=== PATIENT | male | born 1960 | race Caucasian/White ===

== ENCOUNTER 2016-11-05 19:19 | Inpatient (IN) | payer MEDICARE ==
[2016-11-05 19:33] VITALS: BMI 31.8
[2016-11-05] MEDS ORDERED: MAGNESIUM HYDROXIDE 30 ML UDCUP PO PRN (20:04)
[2016-11-05] MEDS ORDERED: BLISTEX LIPSTICK 1 EACH TP PRN (20:04)
[2016-11-05] MEDS ORDERED: DIPHENHYDRAMINE HCL 50 MG/1 ML VIAL IV PRN (20:04)
[2016-11-05] MEDS ORDERED: MENTHOL/CETYLPYRD 1 EACH LOZENGE PO PRN (20:04)
[2016-11-05] MEDS ORDERED: BISACODYL 5 MG TABLET.EC PO PRN (20:04)
[2016-11-05] MEDS ORDERED: SODIUM CHLORIDE 0.9% 100 ML IV PRN (20:04)
[2016-11-05] MEDS ORDERED: BISACODYL 10 MG SUP PR PRN (20:04)
[2016-11-05] MEDS ORDERED: ENOXAPARIN SODIUM 40 MG/0.4 ML SYRINGE SUB-Q SCH (20:15)
[2016-11-05] MEDS ORDERED: SODIUM CHLORIDE 0.9% 1,000 ML IV SCH (20:15)
[2016-11-05] MEDS ORDERED: NICOTINE 21 MG PATCH 1 EACH TD PRN (20:17)
[2016-11-05] MEDS ORDERED: INSULIN ASPART (DOSE) 100 UNITS/1 ML SUB-Q PRN (20:17)
[2016-11-05] MEDS ORDERED: PUMP TUBING ONE (20:18)
[2016-11-05] MEDS: DOCUSATE SODIUM 100 MG CAPSULE PO SCH (20:34)
[2016-11-05] MEDS: POTASSIUM CHLORIDE 10 MEQ TAB.SR PO SCH (20:34)
[2016-11-05] MEDS: FAMOTIDINE 20 MG TABLET PO SCH (20:34)
[2016-11-05] MEDS: MONTELUKAST SODIUM 10 MG TABLET PO SCH (20:35)
[2016-11-05] MEDS ORDERED: ACETAMINOPHEN 325 MG TABLET PO PRN (20:39)
[2016-11-05 20:43] LABS: INR 4.68; PROTHROMBIN TIME 53.3 SECONDS (9.3-11.4)
[2016-11-05] MEDS: ALBUTEROL NEB 2.5 MG/3 ML VIAL.NEB NEB PRN (20:44)
[2016-11-05] MEDS: ALBUTEROL/IPRATROPIUM 2.5/0.5 MG 3 ML/EACH DOSE IH SCH (20:50)
[2016-11-05] MEDS: FLUTICASONE/SALMETEROL 100/50 14 PUFF/EACH DISK IH SCH (21:03)
[2016-11-05] MEDS: MELATONIN 3 MG TABLET PO PRN (22:11)
[2016-11-05] MEDS: ACETAMINOPHEN 325 MG TABLET PO PRN (22:11)
[2016-11-06] MEDS: ALBUTEROL NEB 2.5 MG/3 ML VIAL.NEB NEB PRN (03:18)
[2016-11-06] MEDS ORDERED: DILTIAZEM HCL 5 MG/ML 5ML VIAL IV ONE ×2 (03:40→04:15)
[2016-11-06] MEDS ORDERED: SODIUM CHLORIDE 0.9% 500 ML IV SCH (04:30)
[2016-11-06 05:41] LABS: ABSOLUTE NEUTROPHIL COUNT 14.5 K/mm3 (1.8-7.7); BASO % 0.2 % (0.2-1.0); HEMATOCRIT 29.6 % (32.0-52.0); HEMOGLOBIN 10.2 gm/l (14.0-18.0); IMM NEUT # 0.5 K/mm3 (0-0.2); IMM NEUT% 2.5 % (0-1); LYMPH # 1.6 (1.0-4.8); LYMPH % 9.2 % (15-45); MEAN CELL VOLUME 93.1 fl (80.0-94.0); MEAN CORPUSCULAR HEMOGLOBIN 32.1 pg (27.0-31.0); MEAN CORPUSCULAR HGB CONC 34.5 g/dl (33.0-37.0); MEAN PLATELET VOLUME 10.9 fl (7.4-10.4); MONO # 1.3 (0.0-0.8); NEUT % 81.1 % (43-75); PLATELET COUNT 136 K/mm3 (130-400); RED CELL DISTRIBUTION WIDTH 12.4 % (11.5-14.5)
[2016-11-06] MEDS: ACETAMINOPHEN 325 MG TABLET PO PRN (05:55)
[2016-11-06 05:59] LABS: ALB/GLOB RATIO 1.2 (>1.0); ALBUMIN 3.3 gm/dL (3.5-5.7); CALCIUM 8.8 mg/dL (8.6-10.3); INR 4.4
[2016-11-06 06:32] LABS: NEUTROPHILS 61 % (43-75); TOTAL CELLS COUNTED 100
[2016-11-06 06:33] LABS: BAND 20 % (0-10); BASOPHIL 0 % (0-1); EOSINOPHIL 0 % (1-3); LYMPHOCYTE 13 % (15-45); MONOCYTE 6 % (4-12); PLATELET ESTIMATE NORMAL (NORMAL); TOXIC GRANULATION 2+
[2016-11-06] MEDS: LEVOTHYROXINE SODIUM 25 MCG TABLET PO SCH (06:53)
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
[2016-11-06] MEDS: LORAZEPAM 0.5 MG TABLET PO PRN ×2 (07:30→20:22)
[2016-11-06] MEDS: METOPROLOL TARTRATE 1 MG/ML 5ML VIAL IV ONE ×2 (07:30→07:31)
[2016-11-06] MEDS: FLUTICASONE/SALMETEROL 100/50 14 PUFF/EACH DISK IH SCH ×2 (08:10→20:20)
[2016-11-06] MEDS: FAMOTIDINE 20 MG TABLET PO SCH ×2 (08:10→20:22)
[2016-11-06] MEDS: FUROSEMIDE 40 MG TABLET PO SCH (08:10)
[2016-11-06] MEDS: ATORVASTATIN CALCIUM 40 MG TABLET PO SCH (08:11)
[2016-11-06] MEDS: BUPROPION HCL 150 MG XL TAB.ER.24H PO SCH (08:11)
[2016-11-06] MEDS: DOCUSATE SODIUM 100 MG CAPSULE PO SCH ×2 (08:12→20:11)
[2016-11-06] MEDS: FEXOFENADINE 180 MG TABLET PO SCH (08:12)
[2016-11-06] MEDS: POTASSIUM CHLORIDE 10 MEQ TAB.SR PO SCH ×2 (08:15→20:23)
--- NOTE | 2016-11-06 08:23 | RAD ---
11/06/2016 8:15 AM CHEST - 2 VIEWS History: Follow-up pneumonia Comparison: None Findings: Two views of the chest are obtained. The lungs demonstrate patchy airspace disease within the inferior aspect of the right upper lobe. Small effusion is identified, layering against the sidewall and in the subpulmonic region. The cardiomediastinal silhouette is unremarkable.. The osseous structures are intact.. Single-lead left-sided pacemaker is present with leads terminating in expected region of the left ventricle. Median sternotomy wires are present. IMPRESSION: Right upper lobe pneumonia and effusion as above. As the patient likely has prior studies at an outside institution given the indications, if these could be digitized into the [facility] PACS, a direct comparison could be made and addendum to this report generated as clinically warrented..
[2016-11-06] MEDS: ALBUTEROL/IPRATROPIUM 2.5/0.5 MG 3 ML/EACH DOSE IH SCH ×4 (08:34→20:07)
[2016-11-06] MEDS ORDERED: METOPROLOL SUCCINATE (XL) 50 MG TAB.PRT.SR PO SCH (09:00)
[2016-11-06] MEDS: METOPROLOL SUCCINATE (XL) 50 MG TAB.PRT.SR PO SCH ×2 (09:06→20:22)
--- NOTE | 2016-11-06 11:17 | PDOC43 ---
- Subjective Chief Complaint: Cough Pt here for CAP. RN reports pt quite anxious, and requested ativan, now doing better. No pain c/o. Pt reports rapid heart rate last night after neb tx (converted this am). Reports loose stools x 4 since admit. Stomach a little upset. Breathing better. Ativan helpful for anxiety. - Objective Vital Signs Temperature 98.4 F 11/06/16 07:37 Pulse Rate 85 11/06/16 08:34 Respiratory Rate 20 11/06/16 08:34 Blood Pressure 116/70 11/06/16 07:37 O2 Saturation by Pulse Oximetry 99 11/06/16 08:34 Oxygen Delivery Method Nasal Cannula Oxygen Flow Rate 3 Vital Signs Last 12 Hours Temp Pulse Resp BP Pulse Ox 11/06/16 08:34 85 20 99 11/06/16 07:37 98.4 F 118 19 116/70 97 11/06/16 07:13 19 11/06/16 04:45 98.4 F 112 19 102/57 96 11/06/16 03:18 101 24 100 11/06/16 00:52 98.1 F 81 19 107/53 95 Intake and Output 11/04/16 11/05/16 11/06/16 23:59 23:59 23:59 Intake Total 700 2200 Output Total 600 1150 Balance 100 1050 General: Alert, Cooperative, No Acute Distress HEENT: Atraumatic Lungs: Other (Crackles R upper lobe posteriorly. wheezes bilat.) Cardiovascular: Regular Rate and Rhythm Abdomen: Soft, Normal Bowel Sounds, Other (some tenderness reported L UQ. No R/G ) Extremities: No Edema Neurological: Normal Speech Psych/Mental Status: Other (appears to be feeling better overal.) Laboratory 11/06/16 05:05 11/06/16 05:05 11/06/16 11/06/16 11/05/16 07:35 05:05 20:15 RBC 3.18 L MCH 32.1 H PT 50.0 H 53.3 H VBG Lactate 2.5 H 3.5 H Estimated GFR 42 L POC Capillary Glucose ALT 6 L B-Natriuretic Peptide 379 H Total Protein 6.1 L Albumin 3.3 L % Immature Granulocyt 2.5 H 11/05/16 19:55 RBC MCH PT VBG Lactate Estimated GFR POC Capillary Glucose 110 H ALT B-Natriuretic Peptide Total Protein Albumin % Immature Granulocyt Laboratory Tests 11/05/16 11/06/16 11/06/16 20:15 05:05 07:35 VBG Lactate 3.5 H 2.5 H Troponin I < 0.01 < 0.01 Current Medications: Current meds reviewed in EMR. Active Medications Acetaminophen (Tylenol) 650 mg PO Q6H PRN PRN Reason: Pain or Temperature > 100.5 F Last Admin: 11/06/16 05:55 Dose: 650 mg Acetaminophen (Tylenol) 325 mg PO QID PRN PRN Reason: Pain (Severe) Albuterol Sulfate (Ventolin Inhalation Solution (Dose)) 2.5 mg NEB Q2H PRN PRN Reason: Wheezing Last Admin: 11/06/16 03:18 Dose: 2.5 mg Albuterol/Ipratropium (Duoneb) 3 ml IH 08,12,16,20 [facility] Last Admin: 11/06/16 08:34 Dose: 3 ml Atorvastatin Calcium (Lipitor) 40 mg PO DAILY [facility] Last Admin: 11/06/16 08:11 Dose: 40 mg Benzocaine/Menthol (Cepacol) 1 each PO PRN PRN PRN Reason: Sore Throat Bisacodyl (Dulcolax) 10 mg GA DAILY PRN PRN Reason: Constipation Bisacodyl (Dulcolax) 5 mg PO DAILY PRN PRN Reason: Constipation Bupropion HCl (Wellbutrin Xl) 300 mg PO DAILY [facility] Last Admin: 11/06/16 08:11 Dose: 300 mg Diphenhydramine HCl (Benadryl) 25 - 50 mg IV Q6H PRN PRN Reason: itching or nausea Docusate Sodium (Colace) 100 mg PO BID [facility] Last Admin: 11/06/16 08:12 Dose: Not Given Famotidine (Pepcid) 20 mg PO BID [facility] Last Admin: 11/06/16 08:10 Dose: 20 mg Fexofenadine HCl (Anastasiya 24 Hour) 180 mg PO DAILY [facility] Last Admin: 11/06/16 08:12 Dose: 180 mg Furosemide (Lasix) 40 mg PO QAM [facility] Last Admin: 11/06/16 08:10 Dose: 40 mg Sodium Chloride (Sodium Chloride 0.9%) 100 mls @ 25 mls/hr IV PRN PRN PRN Reason: Flush Levofloxacin/Dextrose 750 mg/ (Premix (D5W) 150 ml Bag) 150 mls @ 100 mls/hr IV Q24H [facility] Insulin Aspart (Novolog (Dose)) 0 units SUB-Q WM/BEDTIME PRN; Protocol PRN Reason: Blood Sugar > Levothyroxine Sodium (Levothroid) 25 mcg PO QAMAC [facility] Last Admin: 11/06/16 06:53 Dose: 25 mcg Lorazepam (Ativan) 0.5 - 1 mg PO Q4H PRN PRN Reason: Anxiety Last Admin: 11/06/16 07:30 Dose: 0.5 mg Magnesium Hydroxide (Milk Of Magnesia) 30 ml PO DAILY PRN PRN Reason: Constipation Melatonin (Melatonin) 3 - 9 mg PO BEDTIME PRN PRN Reason: Insomnia Last Admin: 11/05/16 22:11 Dose: 6 mg Metoprolol Succinate (Toprol Xl) 100 mg PO BID [facility] Last Admin: 11/06/16 09:06 Dose: 100 mg Miscellaneous (Coumadin Per Pharmacy) 1 each PO PERPHARMACY [facility] Montelukast Sodium (Singulair) 10 mg PO BEDTIME [facility] Last Admin: 11/05/16 20:35 Dose: 10 mg Nicotine (Nicoderm Cq) 1 each TD DAILY PRN PRN Reason: smoking cessation Oxycodone HCl (Roxicodone) 10 mg PO QID PRN PRN Reason: Pain (Severe) Petrolatum/Paraffin/Mineral Oil (Blistex) 1 each TP PRN PRN PRN Reason: Dry and/or chapped lips Potassium Chloride (K-Dur) 10 meq PO BID [facility] Last Admin: 11/06/16 08:15 Dose: 10 meq Fluticasone/Salmeterol (Advair 100/50 Diskus) 2 puff IH BID [facility] Last Admin: 11/06/16 08:10 Dose: 2 inh Sodium Chloride (Normal Saline 10ml Flush) 10 - 50 ml IV PRN PRN PRN Reason: IV Flush Last Admin: 11/06/16 03:45 Dose: 10 ml - Problems: Assessment/Plan (1) Community acquired bacterial pneumonia Status: AcuteAssessment/Plan: Bacterial, organism not identified (cultures done in [place]) yet. On Levaquin, started 11/05. Respiratory status good. With severe sepsis. Will recheck lactate. (2) COPD (chronic obstructive pulmonary disease) Qualifiers: COPD type: unspecified COPD Qualifier Code: (J44.9) Chronic obstructive pulmonary disease, unspecified Status: ChronicAssessment/Plan: Continue meds, sats doing well, even on RA. (3) Diabetes mellitus, type II Status: ChronicAssessment/Plan: BG doing well, continue tx. (4) Ischemic cardiomyopathy Status: ChronicAssessment/Plan: BNP sl elevated, but tolerated IVF well. Sats good. Troponins normal. (5) RAYMOND (acute kidney injury) Status: AcuteAssessment/Plan: Cr 2.4->1.7 with hydration. Recheck in am. (6) Atrial fibrillation Qualifiers: Atrial fibrillation type: paroxysmal Qualifier Code: (I48.0) Paroxysmal atrial fibrillation Status: ChronicAssessment/Plan: Patient had episode of increased HR, atrial fib with tachycardia. Didn't have much response to diltiazem, but good response to metoprolol, and converted. On coumadin, INR elevated. (7) Anxiety Status: ChronicAssessment/Plan: Ativan prn, started 11/06 (8) Frequent loose stools Qualifiers: Diarrhea type: unspecified type Qualifier Code: (R19.7) Diarrhea, unspecified Status: AcuteAssessment/Plan: check wbc, c diff. Verbal report had been of increased rate of norovirus around [place]. Anticipate isolation VTE Prophylaxis: ON coumadin, INR 4.4 today Disposition: Anticipate going to med/surg today. Hope to return home in the next 2 days.
[2016-11-06] MEDS ORDERED: LEVOFLOXACIN 750 MG/D5W 150 ML 750 MG in Premix (D5W) 150 ml Bag 1 EACH IV SCH (12:00)
[2016-11-06 13:42] LABS: C DIFF TOXIN A/B NEGATIVE (NEGATIVE)
[2016-11-06] MEDS ORDERED: WARFARIN SODIUM 5 MG TABLET PO SCH (16:00)
[2016-11-06] MEDS ORDERED: WARFARIN PER PHARMACY 1 EACH DOSE PO SCH (16:00)
[2016-11-06] MEDS ORDERED: PUMP TUBING ONE (16:07)
[2016-11-06] MEDS: LEVOFLOXACIN 750 MG/D5W 150 ML 750 MG in Premix (D5W) 150 ml Bag 1 EACH IV SCH (16:14)
[2016-11-06] MEDS ORDERED: METOPROLOL TARTRATE 1 MG/ML 5ML VIAL ONE (16:52)
[2016-11-06] MEDS ORDERED: LOPERAMIDE HCL 2 MG CAPSULE PO PRN (17:07)
[2016-11-06] MEDS ORDERED: METOPROLOL TARTRATE 1 MG/ML 5ML VIAL IV ONE (17:07)
[2016-11-06] MEDS ORDERED: LOPERAMIDE HCL 2 MG CAPSULE PO ONE (17:09)
[2016-11-06] MEDS: MELATONIN 3 MG TABLET PO PRN (20:21)
[2016-11-06] MEDS: MONTELUKAST SODIUM 10 MG TABLET PO SCH (20:23)
[2016-11-07 05:56] LABS: ABSOLUTE NEUTROPHIL COUNT 9.3 K/mm3 (1.8-7.7); BASO % 0.2 % (0.2-1.0); EOS % 0.1 % (0.9-2.9); HEMATOCRIT 29.9 % (32.0-52.0); HEMOGLOBIN 10.1 gm/l (14.0-18.0); IMM NEUT # 0.1 K/mm3 (0-0.2); IMM NEUT% 0.7 % (0-1); LYMPH # 2.4 (1.0-4.8); LYMPH % 19.2 % (15-45); MEAN CELL VOLUME 94.3 fl (80.0-94.0); MEAN CORPUSCULAR HEMOGLOBIN 31.9 pg (27.0-31.0); MEAN CORPUSCULAR HGB CONC 33.8 g/dl (33.0-37.0); MONO # 0.5 (0.0-0.8); MONO % 4.1 % (4-12); NEUT % 75.7 % (43-75); PLATELET COUNT 150 K/mm3 (130-400); RED CELL DISTRIBUTION WIDTH 12.3 % (11.5-14.5)
[2016-11-07 06:08] LABS: INR 2.6; PROTHROMBIN TIME 28.7 SECONDS (9.3-11.4)
[2016-11-07 07:04] LABS: ALB/GLOB RATIO 1.1 (>1.0); ALBUMIN 3.4 gm/dL (3.5-5.7); CALCIUM 9.4 mg/dL (8.6-10.3)
[2016-11-07] MEDS: ALBUTEROL/IPRATROPIUM 2.5/0.5 MG 3 ML/EACH DOSE IH SCH ×4 (08:25→20:26)
[2016-11-07] MEDS: FEXOFENADINE 180 MG TABLET PO SCH (08:58)
[2016-11-07] MEDS: METOPROLOL SUCCINATE (XL) 50 MG TAB.PRT.SR PO SCH (08:59)
[2016-11-07] MEDS: POTASSIUM CHLORIDE 10 MEQ TAB.SR PO SCH ×2 (09:00→21:00)
[2016-11-07] MEDS: OXYCODONE HCL 5 MG TABLET PO PRN ×3 (09:00→19:57)
[2016-11-07] MEDS: FAMOTIDINE 20 MG TABLET PO SCH ×2 (09:01→21:00)
[2016-11-07] MEDS: FUROSEMIDE 40 MG TABLET PO SCH (09:01)
[2016-11-07] MEDS: BUPROPION HCL 150 MG XL TAB.ER.24H PO SCH (09:01)
[2016-11-07] MEDS: LEVOTHYROXINE SODIUM 25 MCG TABLET PO SCH (09:02)
[2016-11-07] MEDS: ATORVASTATIN CALCIUM 40 MG TABLET PO SCH (09:02)
[2016-11-07] MEDS: FLUTICASONE/SALMETEROL 100/50 14 PUFF/EACH DISK IH SCH ×2 (09:06→21:04)
[2016-11-07] MEDS: DOCUSATE SODIUM 100 MG CAPSULE PO SCH (09:12)
[2016-11-07] MEDS ORDERED: METOPROLOL TARTRATE 25 MG TABLET PO ONE (11:51)
--- NOTE | 2016-11-07 12:12 | PDOC43 ---
- Subjective Chief Complaint: Pneumonia Subjective: Reports Pain Tolerable, Reports Tolerating Diet Well, Reports Bowel Movement, Reports Urinating Without Difficulty, Reports Cough, Denies Chest Pain , Denies Fever, Denies Chills - Objective Vital Signs Temperature 98.8 F 11/07/16 09:00 Pulse Rate 128 11/07/16 11:31 Respiratory Rate 18 11/07/16 11:31 Blood Pressure 96/80 11/07/16 09:00 O2 Saturation by Pulse Oximetry 99 11/07/16 11:31 Oxygen Delivery Method Nasal Cannula Oxygen Flow Rate 2 Intake and Output 11/05/16 11/06/16 11/07/16 23:59 23:59 23:59 Intake Total 700 3563 450 Output Total 600 1775 1050 Balance 100 1788 -600 General: Alert, Oriented x3, Cooperative HEENT: Atraumatic, PERRLA Lungs: Other (right upper/middle/lower rhonchi, coarse crackles. left lung CTA) Cardiovascular: Irregular, Other (tachycardia) Abdomen: Soft, Normal Bowel Sounds, No Tenderness, No Non-Distended Extremities: Cyanosis (feet are cool and dusky), Pulses Diminished but Palpable , No Edema, No Tenderness Skin: Dry, Intact, Other (cool, dusky feet) Psych/Mental Status: Normal Affect, Normal Mood Laboratory 11/07/16 05:25 11/07/16 05:25 11/07/16 11/06/16 11/06/16 05:25 21:15 16:38 RBC 3.17 L MCV 94.3 H MCH 31.9 H PT 28.7 H Estimated GFR 48 L POC Capillary Glucose 126 H 107 H Albumin 3.4 L Current Medications: Current meds reviewed in EMR. - Problems: Assessment/Plan (1) Right upper lobe pneumonia Status: AcuteAssessment/Plan: Levaquin, Afebrile, WBC resolving. CT chest at outside facility within past 1 week or so per patient, ordered by his belt tender. Will request report to ensure no mass or other critical findings. Has home O2 QHS and prn. Will repeat CXR in am to reassess effusion and if larger will consider diagnostic/therapeutic tap. (2) Atrial fibrillation Qualifiers: Atrial fibrillation type: paroxysmal Qualifier Code: (I48.0) Paroxysmal atrial fibrillation Status: ChronicAssessment/Plan: Responsive to BB. Not responsive to CCB. Was on Coreg and recently transitioned to lopressor. Has had EP study but unable to do ablation. Has AICD with hx of prior discharges and Pacemaker. Will increase Lopressor to 125mg BID for improved rate control. (3) COPD (chronic obstructive pulmonary disease) Qualifiers: COPD type: unspecified COPD Qualifier Code: (J44.9) Chronic obstructive pulmonary disease, unspecified Status: ChronicAssessment/Plan: Has outpatient pulmonology, PFT's, CT and home O2 with good home med regimen. (4) Diabetes mellitus, type II Qualifiers: Diabetes mellitus complication status: with circulatory complication Status: ChronicAssessment/Plan: on SSI (5) Ischemic cardiomyopathy Status: ChronicAssessment/Plan: BNP very mildly elevated given history and is likely at baseline. No clinical exam signs of decompensation. EF<30% at baseline. (6) Anxiety Status: ChronicAssessment/Plan: Ativan prn, started 11/06 (7) CKD (chronic kidney disease) stage 3, GFR 30-59 ml/min Status: AcuteAssessment/Plan: Baseline 1.8 (8) Anemia of chronic disease Status: AcuteAssessment/Plan: Stable (9) Anticoagulant long-term use Status: AcuteAssessment/Plan: INR goal 2-3, daily INR (10) Frequent loose stools Qualifiers: Diarrhea type: unspecified type Qualifier Code: (R19.7) Diarrhea, unspecified Status: AcuteAssessment/Plan: Cdiff negative Possibly viral or antibiotic associated. (11) RAYMOND (acute kidney injury) Status: ResolvedAssessment/Plan: Baseline reported as 1.8 in outside records (12) Sepsis Status: ResolvedAssessment/Plan: BP stable, good UOP, resolved lactate. [place] blood cultures NTD (called Lab for Micro this am) (13) Elevated lactic acid level Status: Resolved VTE Prophylaxis: ON coumadin, INR 4.4 today Disposition: Anticipate going to med/surg today. Hope to return home in the next 2 days. Additional Comments: Confirmed, Full CODE status
[2016-11-07] MEDS ORDERED: PUMP TUBING ONE (14:11)
[2016-11-07] MEDS ORDERED: MAGNESIUM SULFATE 2 G/50 ML 2 G in Premix (Water) 50 ml 1 EACH IV ONE (14:15)
[2016-11-07] MEDS ORDERED: LEVOFLOXACIN 750 MG/D5W 150 ML 750 MG in Premix (D5W) 150 ml Bag 1 EACH IV SCH (16:00)
[2016-11-07] MEDS ORDERED: WARFARIN SODIUM 5 MG TABLET PO SCH (16:00)
[2016-11-07] MEDS ORDERED: WARFARIN SODIUM 2.5 MG TABLET PO ONE (16:00)
[2016-11-07] MEDS: LEVOFLOXACIN 750 MG/D5W 150 ML 750 MG in Premix (D5W) 150 ml Bag 1 EACH IV SCH (16:39)
[2016-11-07] MEDS ORDERED: METOPROLOL TARTRATE 50 MG TABLET PO SCH (19:20)
[2016-11-07] MEDS ORDERED: METOPROLOL SUCCINATE (XL) 50 MG TAB.PRT.SR PO SCH (21:00)
[2016-11-07] MEDS ORDERED: METOPROLOL SUCCINATE 25 MG TAB.ER.24H PO SCH (21:00)
[2016-11-07] MEDS: MONTELUKAST SODIUM 10 MG TABLET PO SCH (21:00)
[2016-11-07] MEDS: LORAZEPAM 0.5 MG TABLET PO PRN (22:59)
[2016-11-07] MEDS: MELATONIN 3 MG TABLET PO PRN (23:00)
[2016-11-07] MEDS: METOPROLOL TARTRATE 1 MG/ML 5ML VIAL IV SCH ×3 (23:22→23:53)
[2016-11-08 07:04] LABS: CALCIUM 9.1 mg/dL (8.6-10.3)
[2016-11-08 07:11] LABS: INR 2.44; PROTHROMBIN TIME 26.9 SECONDS (9.3-11.4)
[2016-11-08 07:26] LABS: BASO % 0.2 % (0.2-1.0); EOS # 0.1 (0.0-0.5); EOS % 0.6 % (0.9-2.9); HEMATOCRIT 32.6 % (32.0-52.0); IMM NEUT% 0.4 % (0-1); LYMPH # 2.5 (1.0-4.8); LYMPH % 23.8 % (15-45); MEAN CELL VOLUME 93.4 fl (80.0-94.0); MEAN CORPUSCULAR HEMOGLOBIN 31.5 pg (27.0-31.0); MEAN CORPUSCULAR HGB CONC 33.7 g/dl (33.0-37.0); MEAN PLATELET VOLUME 11.2 fl (7.4-10.4); MONO # 0.7 (0.0-0.8); MONO % 6.9 % (4-12); NEUT % 68.1 % (43-75); PLATELET COUNT 162 K/mm3 (130-400); RED CELL DISTRIBUTION WIDTH 12.3 % (11.5-14.5)
[2016-11-08] MEDS: LEVOTHYROXINE SODIUM 25 MCG TABLET PO SCH (07:52)
[2016-11-08] MEDS: ALBUTEROL/IPRATROPIUM 2.5/0.5 MG 3 ML/EACH DOSE IH SCH (08:23)
[2016-11-08] MEDS: ATORVASTATIN CALCIUM 40 MG TABLET PO SCH (08:52)
[2016-11-08] MEDS: POTASSIUM CHLORIDE 10 MEQ TAB.SR PO SCH (08:52)
[2016-11-08] MEDS: FUROSEMIDE 40 MG TABLET PO SCH (08:52)
[2016-11-08] MEDS: FEXOFENADINE 180 MG TABLET PO SCH (08:52)
[2016-11-08] MEDS: FAMOTIDINE 20 MG TABLET PO SCH (08:52)
[2016-11-08] MEDS: BUPROPION HCL 150 MG XL TAB.ER.24H PO SCH (08:52)
[2016-11-08] MEDS: FLUTICASONE/SALMETEROL 100/50 14 PUFF/EACH DISK IH SCH (08:55)
[2016-11-08] MEDS: OXYCODONE HCL 5 MG TABLET PO PRN (08:58)
[2016-11-08] MEDS ORDERED: CARVEDILOL 25 MG TABLET PO SCH (09:00)
--- NOTE | 2016-11-08 09:21 | RAD ---
History: Follow-up right lung infiltrate. Comparison: 11/06/2016. Technique: 2 views Findings: There is evidence of prior median sternotomy. A single lead defibrillator device is also unchanged. The heart size is within expected. There is dense airspace consolidation seen within the right upper lobe, improved from its appearance on prior examination. No definite effusion is seen. The hilar and mediastinal structures are intact. Impression: 1. A right upper lobe infiltrate, improved from its appearance on prior examination. Continued follow-up to resolution is recommended however. 2. Prior median sternotomy with a stable appearance of a single lead defibrillator device.
--- NOTE | 2016-11-08 10:58 | PDOC5 ---
ADMIT DATE: 11/05/16 DISCHARGE DATE: 11/08/16 ADMISSION DIAGNOSES: Pneumonia PROCEDURES PERFORMED THIS HOSPITALIZATION: none CONSULTATIONS: OT/PT HOSPITAL COURSE: This is a 56 year old with COPD, Chronic systolic heart failure , diabetes and paroxismal A fib. He presented to [facility] ER with RUL pneumonia and severe sepsis. He was started on Levofloxacin and transfered to [place] due to lack of inpatient bed availability elsewhere. His sepsis and RAYMOND rapidly improved, and his pneumonia symptoms gradually resolved. He had recurrent episodes of A fib with tachycardia which did not respond to IV diltiazem but did to IV beta-grecia. He was changed from oral metoprolol to oral carvedalol which seemed to do a better job keeping him in sinus rhythm. On 11/08 he is feeling at his baseline and is stable for discharge to home. - Exam Vital Signs Temperature 98.6 F 11/08/16 06:00 Pulse Rate 125 11/08/16 08:23 Respiratory Rate 18 11/08/16 08:23 Blood Pressure 92/76 11/08/16 06:00 O2 Saturation by Pulse Oximetry 94 11/08/16 08:23 Oxygen Delivery Method Room Air Oxygen Flow Rate 0 General: Alert, Oriented x3, Cooperative, No Acute Distress HEENT: Mucous membr. moist/pink Lungs: Other (exp wheezes scattered) Cardiovascular: Regular Rate and Rhythm Abdomen: Soft, Normal Bowel Sounds, No Tenderness, No Masses Extremities: Pulses Diminished but Palpable, No Edema Skin: Normal Color Neurological: Normal Speech Psych/Mental Status: Normal Mood - Results Laboratory 11/08/16 05:30 11/08/16 05:30 11/08/16 11/08/16 11/07/16 07:50 05:30 20:57 RBC 3.49 L MCH 31.5 H PT 26.9 H Estimated GFR 52 L POC Capillary Glucose 139 H 115 H Magnesium 11/07/16 11/07/16 11/07/16 16:35 13:14 12:27 RBC MCH PT Estimated GFR POC Capillary Glucose 164 H 120 H Magnesium 1.6 L - Problems:Assessment/Plan (1) Community acquired bacterial pneumonia Status: AcuteAssessment/Plan: Bacterial, organism not identified (cultures done in [place]) Right upper lobe PNA present on admit with severe sepsis (RAYMOND and lactic acidosis) On Levaquin, started 11/05. F/u CXR 11/07 improving, Change to oral levofloxacin and discharge home (2) Anemia of chronic disease Status: ChronicAssessment/Plan: mild, related to CKD, stable (3) CKD (chronic kidney disease) stage 3, GFR 30-59 ml/min Status: ChronicAssessment/Plan: With RAYMOND present on admit, now back to baseline CKD stage 3. (4) Atrial fibrillation Qualifiers: Atrial fibrillation type: paroxysmal Qualifier Code: (I48.0) Paroxysmal atrial fibrillation Status: ChronicAssessment/Plan: with recurrent episodes of tachycardia. Appears better controlled with carvedalol. Will discharge on carvedalol rather than metoprolol. Responsive to BB. Not responsive to CCB. Has had EP study but unable to do ablation. Has AICD with hx of prior discharges and Pacemaker. (5) COPD (chronic obstructive pulmonary disease) Qualifiers: COPD type: unspecified COPD Qualifier Code: (J44.9) Chronic obstructive pulmonary disease, unspecified Status: ChronicAssessment/Plan: Has outpatient pulmonology, PFT's, CT and home O2 with good home med regimen. (6) Diabetes mellitus, type II Qualifiers: Diabetes mellitus complication status: with circulatory complication Status: ChronicAssessment/Plan: BG well controlled (7) Ischemic cardiomyopathy Status: ChronicAssessment/Plan: BNP very mildly elevated given history and is likely at baseline. No clinical exam signs of decompensation. EF<30% at baseline. - Disposition: Disposition: home today - Discharge Plan Forms: Discharge Instructions Prescriptions: Carvedilol [COREG 25 MG TABLET (SHF)] 25 mg PO BID #60 Levofloxacin [LEVAQUIN 750 MG TABLET (SHF)] 750 mg PO Q24H 7 Days Follow-Up: Ileana Camacho MD [Other] - In 7-10 days (Appointment: Thursday, November 17, 2016 at 10:15 a.m.) Condition: Stable Disposition: Home
[2016-11-08 12:12] VITALS: BP 95/62
[2016-11-08] MEDS ORDERED: WARFARIN SODIUM 2.5 MG TABLET PO ONE (16:00)
== END 2016-11-08 13:00 | disposition home or self-care (01) | DRG 193 ==
LOC: ICU 19:19
PROVIDERS: ADMIT Family Medicine; ATTEND Family Medicine
DX: J15.9 Unspecified bacterial pneumonia (principal); R65.20 Severe sepsis without septic shock; I50.22 Chronic systolic (congestive) heart failure; N17.9 Acute kidney failure, unspecified; Z88.0 Allergy status to penicillin; I25.10 Atherosclerotic heart disease of native coronary artery without angina pectoris; J44.9 Chronic obstructive pulmonary disease, unspecified; E03.9 Hypothyroidism, unspecified; I48.0 Paroxysmal atrial fibrillation; D63.8 Anemia in other chronic diseases classified elsewhere; N18.3 Chronic kidney disease, stage 3 (moderate); E11.22 Type 2 diabetes mellitus with diabetic chronic kidney disease; I25.5 Ischemic cardiomyopathy